=== PATIENT | female | born 1980 | race African-American/Black ===

== ENCOUNTER 2018-08-04 22:02 | Emergency (ER) | payer OTHER ==
[~2018-08-04] VITALS: Ht 162.6 cm; Wt 71.2 kg
[2018-08-04 22:05] VITALS: Ht 162.6 cm; Wt 71.2 kg
[2018-08-04 22:47] LABS: BASOPHIL % 0.5 % (0-2); PLATELET COUNT 194 x10^3mcL (130-400); RED CELL DISTRIBUTION WIDTH 13.3 % (11.5-14.5)
[2018-08-04 22:52] LABS: CALCIUM 9.5 mg/dL (8.5-10.1); CARBON DIOXIDE 28.1 mmol/L (21-32); CHLORIDE SERUM 107 mmol/L (98-107); CREATININE SERUM 0.9 mg/dL (0.6-1.0); GFR1 > 60 mL/min; GLUCOSE SERUM 117 mg/dL (74-106); POTASSIUM SERUM 3.9 mmol/L (3.5-5.1); SODIUM SERUM 144 mmol/L (136-145)
[2018-08-04 22:56] LABS: ALKALINE PHOSPHATASE 62 U/L (46-116); AST/SGOT 23 U/L (15-37); BILIRUBIN TOTAL 0.91 mg/dL (0.20-1.00); CHOLESTEROL 192 mg/dL (<200); HDL CHOLESTEROL 42 mg/dL (40-60); PHOSPHOROUS 3.3 mg/dL (2.5-4.9); URIC ACID 4.7 mg/dL (2.6-6.0)
[2018-08-04 23:21] LABS: TOTAL PROTEIN, SERUM 8.3 g/dL (6.4-8.2)
[2018-08-04 23:28] LABS: ALT/SGPT 20 U/L (14-59)
[2018-08-04 23:45] VITALS: BP 148/86
== END 2018-08-04 23:45 | disposition home or self-care (01) ==
LOC: ED 22:02
PROVIDERS: Emergency Medicine
DX: R07.89 Other chest pain (principal); R00.2 Palpitations
CPT/HCPCS: 36415; J1885; Q0092